=== PATIENT | female | born 1935 | race Caucasian/White ===

== ENCOUNTER → 2017-07-14 | Outpatient (CLI) | payer OTHER ==
[~2017-07-14] MED LIST: AMANTADINE100 M1 PO; AMPICILLIN500 M1 PO; ANTACID500 MG PO; ARTANE2 MG PO; ARTIFICIAL TEAR15 M1 BOTH EYES; ARTIFICIAL TEAR15 M3 BOTH EYES; ASPIRIN325 MG PO; ATIVAN0.5 MG PO; Artane PO; Ativan PO; BISAC-EVAC10 MG PR; CALCIUM CARB 51 EACH PO; CARBIDOPA-LEVO1 EAC5 PO; CARBIDOPA/LEVO1 EACH PO; CEPHALEXIN250 MG PO; CRANBERRY425 MG PO; DITROPAN XL10 MG PO; DITROPAN5 MG PO; DULCOLAX10 MG PR; DURAGESIC25 MCG TD; Ditropan PO; Dulcolax PR; EFFEXOR75 MG PO; FEVERALL650 M1 PR; GABAPENTIN100 MG PO; GABAPENTIN300 MG PO; HIPREX1 GM PO; KEFLEX500 MG PO; LEVODOPA PO; LEXAPRO10 MG PO; LEXAPRO5 MG PO; LISINOPRIL20 MG PO; LISINOPRIL5 MG PO; LORAZEPAM0.5 MG PO; LOSARTAN-HCTZ1 EAC2 PO; LOVASTATIN20 MG PO; METHENAMINE HIPP1 G1 PO; MIRALAX17 GM PO; MIRALAX255 GM PO; MONOPRIL20 MG PO; Miralax, Glycolax PO; NON-ASPIRIN PA325 MG PO; Neurontin PO; OMEPRAZOLE20 MG PO; OXYBUTYNIN CHLOR5 MG; PLAVIX75 MG PO; POLYETHYLENE G255 GM PO; PROTONIX40 MG PO; ROCEPHIN1000 MG IM; SENNA LAXATIVE1 EACH PO; SENNA PLUS TAB1 EACH PO; SEROQUEL PO; SEROQUEL100 MG PO; SEROQUEL50 MG PO; SINEMET 25-1001 EACH PO; SINEMET 25-2501 EAC1 PO; SINEMET PO; ST. JOSEPH ASPI81 MG PO; SYMMETREL100 MG PO; Symmetrel PO; TRIHEXYPHENIDYL2 MG PO; TRIMETHOPRIM100 MG PO; TYLENOL REGULA325 MG PO; TYLENOL650 MG PR; Tylenol Extra Streng PO; UTYMAX POWDER1 EACH PO; ZOFRAN ODT4 MG PO; ZOFRAN4 MG PO
== END ==
LOC: EEG 07:27
DX: R94.01 Abnormal electroencephalogram [EEG] (principal)
CPT/HCPCS: 95819